=== PATIENT | female | born 1955 | race Caucasian/White ===

== ENCOUNTER 2017-09-14 05:51 | Day surgery (SDC) | payer OTHER ==
[2017-09-14] MEDS ORDERED: FENTAnyl 50 MCG/ML VIAL (06:34)
[2017-09-14] MEDS ORDERED: GLYCOPYRROLATE 0.4 MG INJ (06:34)
[2017-09-14] MEDS ORDERED: ROCURONIUM 50 MG INJ (06:34)
[2017-09-14] MEDS ORDERED: LIDOCAINE 2% (SDV) 5 ML INJ (06:34)
[2017-09-14] MEDS ORDERED: NEOSTIGMINE 3 MG/3 ML SYRINGE (06:34)
[2017-09-14] MEDS ORDERED: PROPOFOL 20 ML (06:34)
[2017-09-14] MEDS ORDERED: MIDAZOLAM 1 MG/ML 2 ML INJ (06:34)
[2017-09-14] MEDS ORDERED: DEXAMETHASONE 4 MG/ML 1 ML INJ (06:35)
[2017-09-14] MEDS ORDERED: ONDANSETRON 4 MG INJ (06:35)
[2017-09-14] MEDS ORDERED: CEFAZOLIN 1 GM INJ (07:00)
[2017-09-14] MEDS: BUPIVACAINE 0.25% (MPF) 30 ML INJ (08:37)
[2017-09-14] MEDS: LIDOCAINE 1%/EPI 30 ML INJ (08:37)
== END 2017-09-14 11:08 | disposition home or self-care (01) ==
LOC: SDS 05:51
DX: M18.11 Unilateral primary osteoarthritis of first carpometacarpal joint, right hand (principal)
CPT/HCPCS: 25447; 73130-RT; 88304; 88311

== ENCOUNTER 2018-03-24 10:31 | Emergency (ER) | payer OTHER ==
[2018-03-24] MEDS: DIPHENHYDRAMINE 50 MG INJ IV (11:14)
[2018-03-24] MEDS: SOD CHLORIDE 0.9% 1,000 ML IV (11:14)
[2018-03-24] MEDS: METOCLOPRAMIDE 10 MG INJ IV (11:14)
[2018-03-24 11:23] LABS: ADD MAN DIFF? NO
[2018-03-24 11:24] LABS: WHITE BLOOD COUNT 5.8 10^3/ul (4.8-10.8)
[2018-03-24 11:24] LABS: BASOPHILS % 0.3 % (0.0-2.0); EOSINOPHILS # 0.1 10^3/ul (0.0-0.5); EOSINOPHILS % 1.4 % (0.0-7.0); HEMATOCRIT 45.1 % (37.0-47.0); HEMOGLOBIN 15.4 g/dl (12.0-16.0); LYMPHOCYTES # 1.5 10^3/ul (0.8-2.9); LYMPHOCYTES % 25.2 % (15.0-51.0); MEAN CORPUSCULAR HEMOGLOBIN 30.9 pg (29.0-33.0); MEAN CORPUSCULAR HGB CONC 34.1 g/dl (32.0-37.0); MEAN CORPUSCULAR VOLUME 90.6 fl (82.0-101.0); MEAN PLATELET VOLUME 9.8 fl (7.4-10.4); MONOCYTE # 0.4 10^3/ul (0.3-0.9); MONOCYTES % 7.2 % (0.0-11.0); NEUTROPHIL # 3.8 10^3/ul (1.6-7.5); NEUTROPHILS % 65.7 % (39.0-77.0); PLATELET COUNT 298 10^3/UL (140-415); RED BLOOD COUNT 4.98 10^6/ul (4.20-5.40); RED CELL DISTRIBUTION WIDTH 11.9 % (11.5-14.5)
[2018-03-24 11:45] LABS: INR 0.88; PT RATIO 0.9
[2018-03-24 11:55] LABS: ANION GAP 7 (5-13); BLOOD UREA NITROGEN 16 mg/dl (7-20); CALCIUM 9.5 mg/dl (8.4-10.2); CARBON DIOXIDE 28 mmol/L (21-31); CHLORIDE 108 mmol/L (97-110); CREATININE 0.57 mg/dl (0.44-1.00); Estimated GFR > 60 mL/min (>60); GLUCOSE 100 mg/dl (70-220); POTASSIUM 4.1 mmol/L (3.5-5.1); SODIUM 143 mmol/L (135-144)
[2018-03-24] MEDS: KETOROLAC 30 MG INJ IV (11:55)
[2018-03-24] MEDS: DIAZEPAM 5 MG/ML SYG IV (13:28)
== END 2018-03-24 14:25 | disposition home or self-care (01) ==
LOC: E/R 10:31
DX: R42 Dizziness and giddiness (principal); R19.7 Diarrhea, unspecified; K44.9 Diaphragmatic hernia without obstruction or gangrene; R40.2252 Coma scale, best verbal response, oriented, at arrival to emergency department; R40.2362 Coma scale, best motor response, obeys commands, at arrival to emergency department; R40.2142 Coma scale, eyes open, spontaneous, at arrival to emergency department; R10.9 Unspecified abdominal pain
CPT/HCPCS: 36415; 70450; 80048; 85025; 85610; 85730; 96374; 96375; 99285-25

== ENCOUNTER → 2018-05-10 | Outpatient (CLI) | payer OTHER ==
[~2018-05-10] MED LIST: BARIUM SULFATE 135 ML (E-Z HD) PO
== END | disposition home or self-care (01) ==
LOC: RAD 10:27
DX: R13.10 Dysphagia, unspecified (principal)
CPT/HCPCS: 74230

== ENCOUNTER 2018-06-24 13:51 | Emergency (ER) | payer OTHER ==
[2018-06-24] MEDS: predniSONE 20 MG TAB PO (17:56)
== END 2018-06-24 19:48 | disposition home or self-care (01) ==
LOC: FTE 13:51
DX: M54.31 Sciatica, right side (principal)
CPT/HCPCS: 93971; 99284-25

== ENCOUNTER 2018-10-19 11:39 | Day surgery (SDC) | payer OTHER ==
[2018-10-19] MEDS ORDERED: FENTAnyl 50 MCG/ML VIAL (13:10)
[2018-10-19] MEDS ORDERED: LIDOCAINE 2% (SDV) 5 ML INJ (13:10)
[2018-10-19] MEDS ORDERED: PROPOFOL 20 ML (13:10)
== END 2018-10-19 16:23 | disposition home or self-care (01) ==
LOC: GIL 11:39
DX: K29.30 Chronic superficial gastritis without bleeding (principal); K20.8 Other esophagitis; E78.5 Hyperlipidemia, unspecified
CPT/HCPCS: 43239; 88305; 88312; 88313